=== PATIENT | female | born 1965 | race Caucasian/White ===

== ENCOUNTER 2017-09-24 08:23 | Emergency (ER) | payer OTHER ==
[~2017-09-24] VITALS: Ht 160 cm; Wt 63.5 kg
[2017-09-24 08:27] VITALS: BP 142/95
--- NOTE | 2017-09-24 08:36 | NUR ---
PT MOVED TO BED 12 BY EMS.
--- NOTE | 2017-09-24 08:45 | NUR ---
52 F BIBA WITH C/O ALOC; PER FAMILY BY BEDSIDE, PT FOUND DOWN BY FAMILY AT HOME WITH ALOC; LAST SEEN NORMAL LAST NIGHT PER FAMILY; PT HAS HX OF SZ, PER FAMILY PT HASNT HAD A SZ "IN YEARS"; PT IS AOX2, PERRLA; GCS=14; PT ALERT BUT DROWSY; PT STS "UNSURE WHAT HAPPENED"; RR ARE EVEN AND UNLABORED; PT DENIES ANY CP, SOB, OR PAIN AT THIS TIME. PT POSITIONED TO COMFORT, BED DOWN. NAD. VSS. ER MD AWARE OF PT STATUS. WILL CONTINUE TO MONITOR.
--- NOTE | 2017-09-24 08:45 | NUR ---
Note undone in EDM - 09/24/17 at 0944 by CATRACHO 52 F BIBA WITH C/O ALOC; PER FAMILY BY BEDSIDE, PT FOUND DOWN BY FAMILY AT HOME WITH ALOC; LAST SEEN NORMAL LAST NIGHT PER FAMILY; PT HAS HX OF SZ, PER FAMILY PT HASNT HAD A SZ "IN YEARS"; PT IS AOX4, PERRLA; GCS=14; RR ARE EVEN AND UNLABORED; PT DENIES ANY CP, SOB, OR PAIN AT THIS TIME. PT POSITIONED TO COMFORT, BED DOWN. NAD. BERRY. TRISH BRYANT AWARE OF PT STATUS. WILL CONTINUE TO MONITOR.
--- NOTE | 2017-09-24 09:40 | NUR ---
PT TO CT AND XRAY LUIS ALBERTO EASTON ACCOMPANIED BY SAFE AND VAULT INSTALLER
--- NOTE | 2017-09-24 10:02 | NUR ---
pt returned from xray/ct back to room via [facility] accompanied by alarm service technician
[2017-09-24 10:33] LABS: BASOPHILS # (AUTO) 0.2 K/uL (0.00-0.22); BASOPHILS % (AUTO) 3.6 % (0.0-2.0); EOSINOPHILS # (AUTO) 0.1 K/uL (0-0.4); EOSINOPHILS % (AUTO) 1.1 % (0.0-4.0); HEMATOCRIT 42.7 % (36-48); HEMOGLOBIN 14.1 g/dL (12.0-16.0); LYMPHOCYTES # (AUTO) 1.7 K/uL (2.5-16.5); LYMPHOCYTES % (AUTO) 26.8 % (20.5-51.1); MEAN CORPUSCULAR HEMOGLOBIN 31 pg (27-31); MEAN CORPUSCULAR HGB CONC 33 g/dL (33-37); MEAN CORPUSCULAR VOLUME 94 fL (80-94); MONOCYTES # (AUTO) 0.4 K/uL (0.8-1.0); MONOCYTES % (AUTO) 6.5 % (1.7-9.3); NEUTROPHILS # (AUTO) 3.9 K/uL (1.8-7.7); PLATELET COUNT (AUTO) 253 K/uL (140-450); RED BLOOD CELL COUNT(AUTO) 4.56 MIL/uL (4.20-5.40); WHITE BLOOD COUNT (AUTO) 6.3 K/uL (4.8-10.8)
[2017-09-24 10:46] LABS: ANION GAP 11.5 (8-16); CARBON DIOXIDE 25.5 mmol/L (21-32); CHLORIDE 107 mmol/L (98-107); CREATININE 0.9 mg/dL (0.6-1.3); GFR ARICAN-AMERICAN 85 mL/min (>90); GLUCOSE 101 mg/dL (74-106); SODIUM SERUM 140 mmol/L (136-145); UREA NITROGEN, BLOOD 12 mg/dL (7-18)
[2017-09-24 10:52] LABS: ACETAMINOPHEN < 0.5 ug/ml (10-30); ALBUMIN 3.9 g/dL (3.4-5.0); ASPARTATE AMINOTRANSFERASE 17 U/L (15-37); SALICYLATE 4.7 mg/dL (2.8-20.0); TOTAL BILIRUBIN 0.1 mg/dL (0.0-1.0)
[2017-09-24] MEDS ORDERED: NACL 0.9% 1,000 ML IV SCH (10:55)
[2017-09-24] MEDS ORDERED: cefTRIAXone 1,000 MG in DEXT 5% MINI-BAG PLUS 50 ML IV ONE (10:55)
--- NOTE | 2017-09-24 11:02 | NUR ---
called ct for results of ct; signal technician said they are informed about pending results and that they are "working on it"; er md duffy aware; will follow up
[2017-09-24] MEDS ORDERED: cefTRIAXone 1,000 MG VIAL ONE (11:27)
[2017-09-24 11:33] LABS: APPEARANCE,URINE CLEAR (CLEAR); BILIRUBIN,URINE NEGATIVE (NEGATIVE); BLOOD, URINE NEGATIVE (NEGATIVE); COLOR,URINE YELLOW (YELLOW); LEUKOCYTE ESTERASE ,URINE 1+ (NEGATIVE); NITRITE, URINE NEGATIVE (NEGATIVE); UGLUCOSE NEGATIVE (NEGATIVE)
[2017-09-24 11:43] LABS: WBC,URINE 0-5 (RARE) /HPF (0-5)
[2017-09-24 11:44] LABS: RBC,URINE NONE SEEN /HPF (0-5)
[2017-09-24 11:50] LABS: BARBITURATE, URINE NEG. ng/ml (NEG <=200); BENZODIAZEPINE, URINE NEG. ng/mL (NEG <=200); CANNABINOID, URINE NEG. ng/mL (NEG <=50); COCAINE, URINE NEG. ng/mL (NEG <=300); OPIATE, URINE NEG. ng/mL (NEG <=2000); PHENCYCLIDINE SCREEN,URINE NEG. ng/mL (NEG <=25)
--- NOTE | 2017-09-24 13:00 | NUR ---
pt neuro status improved; pt is aox4, gcs=15; er md duffy notified; nad; will continue to monitor.
[2017-09-24 14:00] VITALS: BP 138/87
== END 2017-09-24 14:00 | disposition home or self-care (01) ==
LOC: MED 08:23
DX: R40.4 Transient alteration of awareness (principal); R56.9 Unspecified convulsions; N39.0 Urinary tract infection, site not specified; F17.200 Nicotine dependence, unspecified, uncomplicated
CPT/HCPCS: 36415; 70450; 71045; 80053; 80305; 81001; 81025; 82550; 83605; 84484; 85025; 87040; 87086; 96365; 99285; G0480; G0482; J0696; J7030; J7060; Q0092